=== PATIENT | male | born 1970 | race Caucasian/White ===

== ENCOUNTER 2021-05-31 14:42 | Emergency (ER) | payer BC, MEDICAID ==
[2021-05-31] MEDS ORDERED: Sodium Chloride 0.9% 1,000 ML IV ONE (14:55)
[2021-05-31] MEDS ORDERED: Ondansetron 4 MG/2 ML SDV IVPUSH ONE (14:56)
[2021-05-31] MEDS ORDERED: Ondansetron 4 MG/2 ML SDV ONE (15:27)
--- NOTE | 2021-05-31 16:38 | EDM.PDOC ---
ED HPI GENERAL MEDICAL PROBLEM - General Chief Complaint: Gastrointestinal Problem Stated Complaint: WEAKNESS AND DEHYDRATION Time Seen by Provider: 05/31/21 14:47 - History of Present Illness INITIAL COMMENTS - FREE TEXT/NARRATIVE: Pt had a syncopal episode at home about 1PM today. He has been doing a bowel prep for Colonoscopy tomorrow. He started vomiting and having diarrhea, then passed out. His uncle brought him in. He is drowsy on arrival but does respond to questions. He says his tongue feels tingly. - Related Data Allergies Allergy/AdvReac Type Severity Reaction Status Date / Time No Known Allergies Allergy Verified 05/31/21 15:31 Home Meds: Home Meds Verapamil HCl 40 mg PO BID 05/31/21 [History] ED ROS GENERAL - Review of Systems Review Of Systems: Comprehensive ROS is negative, except as noted in HPI. Neurological: Reports: Syncope, Tingling ED EXAM, GENERAL - Physical Exam Exam: See Below General Appearance: Lethargic Eye Exam: Bilateral Eye: EOMI, PERRL GI/Abdominal: Other (Mild diffuse Abd pain. Pt states it's chronic.) #1 Interpretation EKG Date: 05/31/21 Time: 14:30 Course - Vital Signs Last Recorded V/S: Last Vital Signs Temp 98.2 F 05/31/21 15:24 Pulse 58 L 05/31/21 15:24 Resp 20 05/31/21 15:24 BP 122/77 05/31/21 15:24 Pulse Ox 99 05/31/21 15:24 - Orders/Labs/Meds Labs: Laboratory Tests 05/31/21 05/31/21 05/31/21 Range/Units 14:53 14:53 14:55 WBC 10.8 D (4.0-11.0) K/uL RBC 5.41 (4.50-6.50) M/uL Hgb 16.0 (13.0-18.0) g/dL Hct 45.2 (40.0-54.0) % MCV 84 (76-96) fL MCH 29.6 (27.0-32.0) pg MCHC 35.4 H (31.0-35.0) g/dL RDW 12.8 (11.0-16.0) % Plt Count 213 (150-400) K/uL MPV 10.0 (6.0-10.0) fL Neut % (Auto) 83.3 H (45.0-70.0) % Lymph % (Auto) 10.6 L (20.0-40.0) % [place] % (Auto) 4.5 (3.0-10.0) % Eos % (Auto) 1.4 (1.0-5.0) % Baso % (Auto) 0.2 (0.0-0.5) % Neut # (Auto) 8.99 H (2.00-7.50) K/uL Lymph # (Auto) 1.14 L (1.50-4.00) K/uL [place] # (Auto) 0.49 (0.20-0.80) K/uL Eos # (Auto) 0.15 (0.04-0.40) K/uL Baso # (Auto) 0.02 (0.02-0.10) K/uL Sodium 140 (136-145) mmol/L Potassium 4.9 (3.5-5.1) mmol/L Chloride 101 (98-107) mmol/L Carbon Dioxide 28.5 (21.0-32.0) mmol/L Anion Gap 15.4 H (5.0-15.0) mmol/L BUN 18 (8-26) mg/dL Creatinine 1.39 H (0.70-1.30) mg/dL Est Cr Clr Drug Dosing 71.05 mL/min Estimated GFR (MDRD) 54 L (>60) MLS/MIN BUN/Creatinine Ratio 12.9 (6-25) Glucose 149 H (74-100) mg/dL Calcium 10.1 (8.5-10.1) mg/dL Total Bilirubin 0.5 (0.0-1.0) mg/dL AST 34 (15-37) U/L ALT 83 H (12-78) U/L Alkaline Phosphatase 108 (46-116) U/L Troponin I < 0.017 (0.000-0.060) ng/mL Total Protein 9.1 H (6.4-8.2) g/dL Albumin 4.6 (3.4-5.0) g/dL Globulin 4.5 H (2.2-4.2) g/dL Albumin/Globulin Ratio 1.0 (0.8-2.0) Urine Color Urine Appearance (CLEAR) Urine pH (5.0-8.0) Ur Specific [place] (1.003-1.030) Urine Protein (NEGATIVE) mg/dL Urine Glucose (UA) (NEGATIVE) mg/dL Urine Ketones (NEGATIVE) mg/dL Urine Occult Blood (NEGATIVE) Urine Nitrite (NEGATIVE) Urine Bilirubin (NEGATIVE) Urine Urobilinogen (0.2-1.0) E.U./dL Ur Leukocyte Esterase (NEGATIVE) U Hyaline Cast (Auto) /HPF Urine Bacteria /HPF Urine Mucus /HPF 05/31/21 Range/Units 16:00 WBC (4.0-11.0) K/uL RBC (4.50-6.50) M/uL Hgb (13.0-18.0) g/dL Hct (40.0-54.0) % MCV (76-96) fL MCH (27.0-32.0) pg MCHC (31.0-35.0) g/dL RDW (11.0-16.0) % Plt Count (150-400) K/uL MPV (6.0-10.0) fL Neut % (Auto) (45.0-70.0) % Lymph % (Auto) (20.0-40.0) % [place] % (Auto) (3.0-10.0) % Eos % (Auto) (1.0-5.0) % Baso % (Auto) (0.0-0.5) % Neut # (Auto) (2.00-7.50) K/uL Lymph # (Auto) (1.50-4.00) K/uL [place] # (Auto) (0.20-0.80) K/uL Eos # (Auto) (0.04-0.40) K/uL Baso # (Auto) (0.02-0.10) K/uL Sodium (136-145) mmol/L Potassium (3.5-5.1) mmol/L Chloride (98-107) mmol/L Carbon Dioxide (21.0-32.0) mmol/L Anion Gap (5.0-15.0) mmol/L BUN (8-26) mg/dL Creatinine (0.70-1.30) mg/dL Est Cr Clr Drug Dosing mL/min Estimated GFR (MDRD) (>60) MLS/MIN BUN/Creatinine Ratio (6-25) Glucose (74-100) mg/dL Calcium (8.5-10.1) mg/dL Total Bilirubin (0.0-1.0) mg/dL AST (15-37) U/L ALT (12-78) U/L Alkaline Phosphatase (46-116) U/L Troponin I (0.000-0.060) ng/mL Total Protein (6.4-8.2) g/dL Albumin (3.4-5.0) g/dL Globulin (2.2-4.2) g/dL Albumin/Globulin Ratio (0.8-2.0) Urine Color Yellow Urine Appearance Clear (CLEAR) Urine pH 6.5 (5.0-8.0) Ur Specific [place] 1.025 (1.003-1.030) Urine Protein 30 H (NEGATIVE) mg/dL Urine Glucose (UA) Negative (NEGATIVE) mg/dL Urine Ketones Negative (NEGATIVE) mg/dL Urine Occult Blood Negative (NEGATIVE) Urine Nitrite Negative (NEGATIVE) Urine Bilirubin Negative (NEGATIVE) Urine Urobilinogen 0.2 (0.2-1.0) E.U./dL Ur Leukocyte Esterase Negative (NEGATIVE) U Hyaline Cast (Auto) Few /HPF Urine Bacteria Few /HPF Urine Mucus Few /HPF Meds: Medications Discontinued Medications Generic Name Dose Route Start Last Admin Trade Name Freq PRN Reason Stop Dose Admin Sodium Chloride 1,000 mls @ 999 mls/hr 05/31/21 14:55 05/31/21 15:16 Normal Saline IV 05/31/21 15:55 999 mls/hr .BOLUS ONE Administration Ondansetron HCl 4 mg 05/31/21 14:56 05/31/21 15:18 Ondansetron 4 Mg/2 Ml Sdv IVPUSH 05/31/21 14:57 4 mg ONETIME ONE Administration Ondansetron HCl Confirm 05/31/21 15:27 05/31/21 15:35 Ondansetron 4 Mg/2 Ml Sdv Administered 05/31/21 15:28 Not Given Dose 4 mg .ROUTE .STK-MED ONE - Re-Assessments/Exams Free Text/Narrative Re-Assessment/Exam: 05/31/21 16:38 Normal saline design/animation instructor per bolus 1 liter. Zofran also given. Pt's condition rapidly improved. Labs are ok. He is able to stand and walk now with no issues. 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 Rest - he wants to finish the bowel prep. He has 1 glass left. I advised him to try 1 swallow and see how it goes. If he tolerates that he can finish it. He wants to keep his appt tomorrow for scoping. He is scheduled for both an EGD and Colonoscopy. Departure - Departure Time of Disposition: 16:35 Disposition: Home, Self-Care 01 Condition: Good Clinical Impression: Syncope and collapse - Discharge Information *PRESCRIPTION DRUG MONITORING PROGRAM REVIEWED*: Yes *COPY OF PRESCRIPTION DRUG MONITORING REPORT IN PATIENT JAILENE: Yes Instructions: Dehydration, Adult, [id number] Referrals: Annette Anderson NP [Primary Care Provider] - Forms: ED Department Discharge Additional Instructions: Discharge home. Try a swallow of bowel prep at home and if tolerable finish bowel prep. Call or return to the ER if you have any questions or concerns. Sepsis Event Note (ED) - Evaluation Sepsis Screening Result: No Definite Risk - Focused Exam Vital Signs: Vital Signs Temp Pulse Resp BP Pulse Ox 05/31/21 15:24 98.2 F 58 L 20 122/77 99
== END 2021-05-31 16:35 | disposition home or self-care (01) ==
LOC: LB.ED 14:42
DX: R55 Syncope and collapse (principal)
CPT/HCPCS: 36415; 80053; 81001; 84484; 85025; 93005; 96374; 99284; J2405; J7030

== ENCOUNTER 2021-06-01 09:22 | Day surgery (SDC) | payer BC, MEDICAID ==
[~2021-06-01 09:22] MED LIST: Metoclopramide 10 MG/2 ML SDV IV PRN
[2021-06-01] MEDS: Sodium Chloride 0.9% 1,000 ML IV SCH (10:12)
[2021-06-01] MEDS ORDERED: Propofol 1,000 MG/100 ML SDV ONE (11:45)
--- NOTE | 2021-06-01 14:46 | OR ---
DATE OF OPERATION: 06/01/2021 SURGEON: Johnny Kothari MD PREOPERATIVE DIAGNOSIS: Dysphagia and screening colonoscopy. POSTOPERATIVE DIAGNOSIS: Dysphagia and screening colonoscopy. PROCEDURE: EGD with biopsy and colonoscopy. ANESTHESIA: MAC. ESTIMATED BLOOD LOSS: Minimal. COMPLICATIONS: None. INDICATION FOR THE PROCEDURE: The patient is a 51-year-old male who has had complaints of epigastric pain and dysphagia for both liquids and solids. Does take antacids, otherwise having screening colonoscopy. No complaints of change in bowel habits. DESCRIPTION OF PROCEDURE: Informed consent was obtained with the patient. The patient was taken to operating room, placed on table in the left lateral decubitus position. Monitored anesthesia care was administered. Esophagogastroscope was then advanced through the oral cavity, directed towards the duodenum. Duodenum was reached and was normal. Gastric antrum appeared normal. Cold forceps biopsy taken for H pylori testing. Retroflexion performed. Gastric cardia was also normal. The GE junction appeared wide and patent. No signs of inflammation. No signs of stricture. The remainder of the esophagus was also otherwise unremarkable. Esophagogastroscope was then withdrawn. I then turned my attention for the colonoscopy. Digital rectal exam was performed and was normal. Colonoscope was then advanced through the anus, directed towards the cecum. Cecum was reached and identified by appendiceal orifice and ileocecal valve. Colonoscope was then slowly withdrawn. No cancer. No polyps. No areas of ischemia or inflammation identified. The rectum was also otherwise unremarkable. Colonoscope was then withdrawn. FINDINGS: No signs of esophageal stricture. Colonoscopy was normal. RECOMMENDATIONS: We will follow up on biopsies for H pylori. Otherwise, we would recommend repeat screening colonoscopy in 10 years. GUS/DAVION /[id number]
== END 2021-06-01 13:00 | disposition home or self-care (01) ==
LOC: LB.SDS 09:22
PROVIDERS: ATTEND Surgery
DX: Z12.11 Encounter for screening for malignant neoplasm of colon (principal); K31.89 Other diseases of stomach and duodenum; R13.10 Dysphagia, unspecified; Z79.899 Other long term (current) drug therapy
CPT/HCPCS: 88305; J2704; J7030

== ENCOUNTER 2023-06-25 22:31 | Emergency (ER) | payer BC, MEDICAID, OTHER ==
[2023-06-25] MEDS ORDERED: Ciprofloxacin 0.3% Ophth Soln 2.5 ML Bottle ONE (22:45)
== END 2023-06-25 23:00 | disposition home or self-care (01) ==
LOC: LB.ED 22:31
DX: H10.31 Unspecified acute conjunctivitis, right eye (principal); K29.50 Unspecified chronic gastritis without bleeding; Z88.8 Allergy status to other drugs, medicaments and biological substances; Z79.899 Other long term (current) drug therapy
CPT/HCPCS: 99283; A9270-GY